=== PATIENT | female | born 1980 | race Caucasian/White ===

== ENCOUNTER 2017-06-11 19:22 | Emergency (ER) | payer OTHER ==
[~2017-06-11] VITALS: Ht 157.5 cm; Wt 112.9 kg
[~2017-06-11 19:22] MED LIST: CITRACAL PO; CLR10 PO; CLX20 PO; CMBIN INH; FLNCV PO; VALA500T60 PO
[2017-06-11 19:29] VITALS: TEMP 36.8; Ht 157.5 cm; Wt 112.9 kg
--- NOTE | 2017-06-11 19:42 | EMERGENCY ROOM VISIT NOTE ---
History First contact with patient: 19:33 Chief Complaint: ABDOMINAL PAIN Stated Complaint: SEVERE ABD PAIN History of Present Illness The patient is a 36 year old female with PMH of gastric bypass surgery 6 years ago and GERD, who presents to the Emergency Room with complaints of epigastric pain since yesterday afternoon. Pain is in the epigastric and left upper abdomen , intermittent, sharp and burning, 9/10. Associated nausea with dry heaves, no vomiting. She has taken Peptobismol with relief of her nausea and abdominal pain, but it keeps coming back, which she states is unusual for her. She does not have any pain in the rest of her abdomen. Patient reports that she normally gets pain like this when she is hungry and it is improved by eating, however she has eaten several times and has not improved her pain, and sometimes aches and felt worse. She denies any fevers or chills, headaches, neck pain, shortness of breath, chest pain, back pain, vomiting, diarrhea or constipation, bloody or black stools, dysuria or urinary frequency, abnormal vaginal discharge, or rash. Review of Systems A complete 10 point review of systems was reviewed with the patient with pertinent positives and negatives as per history of present illness. All else were negative. Past Medical/Surgical History Gastric bypass surgery, GERD, depression, anxiety Social History Smoking Status: Never Smoker Alcohol Use: none Drug Use: none Housing Status: lives with family Current/Historical Medications Scheduled Bupropion (Wellbutrin Sr), 200 MG PO BID Multivitamin (Multivitamin), 1 TAB PO DAILY Valacyclovir (Valtrex), 500 MG PO DAILY Scheduled PRN Ipratropium-Albuterol (Combivent Respimat), 2 PUFFS INH BID PRN for SOB/Wheezing Allergies Reviewed in chart Physical Exam Vital Signs Date Time Temp Pulse Resp B/P (MAP) Pulse Ox O2 Delivery O2 Flow Rate FiO2 06/12/17 00:39 101 18 144/85 99 Room Air 06/11/17 23:15 98 18 159/98 98 Room Air 06/11/17 21:25 92 19 161/122 97 Room Air 06/11/17 19:29 36.8 101 20 164/92 97 Room Air Physical Exam CONSTITUTIONAL: Pleasant and cooperative. No acute distress. Moderately dehydrated. Very poor dentition. HEENT: Normocephalic, atraumatic. Pupils equal, round and reactive to light, EOMI. TMs normal. Pharynx normal. Dry mucous membranes. NECK: Supple, full active range of motion without discomfort. RESPIRATORY: Clear to auscultation bilaterally with no wheezing, crackles, rhonchi or stridor. Equal expansion bilaterally. CARDIOVASCULAR: Regular rate and rhythm with no murmurs, rubs or gallops. Normal peripheral perfusion. No edema. GASTROINTESTINAL: Mild epigastric and left upper quadrant tenderness to palpation. No rebound tenderness or guarding. Abdomen is otherwise soft, nontender, nondistended. No palpable masses or HSM. Bowel sounds present in all quadrants. MUSCULOSKELETAL: Full range of motion of all joints without discomfort. INTEGUMENTARY: No rash or other significant dermatologic conditions noted. NEUROLOGIC: Alert and oriented X 4 with normal affect. Cranial nerves II-XII grossly intact. No focal neurologic deficits noted. Medical Decision & Procedures Laboratory Results 06/11/17 20:00 Red Blood Count 4.18, Mean Corpuscular Volume 74.2, Mean Corpuscular Hemoglobin 23.7, Mean Corpuscular Hemoglobin Concent 31.9, Mean Platelet Volume 9.2, Neutrophils (%) (Auto) 63.1, Lymphocytes (%) (Auto) 28.4, Monocytes (%) (Auto) 6.8, Eosinophils (%) (Auto) 1.5, Basophils (%) (Auto) 0.1, Neutrophils # (Auto) 5.85, Lymphocytes # (Auto) 2.64, Monocytes # (Auto) 0.63, Eosinophils # (Auto) 0.14, Basophils # (Auto) 0.01 06/11/17 20:00 Test 06/11/17 20:00 06/11/17 22:10 White Blood Count 9.28 K/uL (4.8-10.8) Red Blood Count 4.18 M/uL (4.2-5.4) Hemoglobin 9.9 g/dL (12.0-16.0) Hematocrit 31.0 % (37-47) Mean Corpuscular Volume 74.2 fL (80-100) Mean Corpuscular Hemoglobin 23.7 pg (25-34) Mean Corpuscular Hemoglobin Concent 31.9 g/dl (32-36) Platelet Count 396 K/uL (130-400) Mean Platelet Volume 9.2 fL (7.4-10.4) Neutrophils (%) (Auto) 63.1 % Lymphocytes (%) (Auto) 28.4 % Monocytes (%) (Auto) 6.8 % Eosinophils (%) (Auto) 1.5 % Basophils (%) (Auto) 0.1 % Neutrophils # (Auto) 5.85 K/uL (1.4-6.5) Lymphocytes # (Auto) 2.64 K/uL (1.2-3.4) Monocytes # (Auto) 0.63 K/uL (0.11-0.59) Eosinophils # (Auto) 0.14 K/uL (0-0.5) Basophils # (Auto) 0.01 K/uL (0-0.2) RDW Standard Deviation 43.3 fL (36.4-46.3) RDW Coefficient of Variation 15.9 % (11.5-14.5) Immature Granulocyte % (Auto) 0.1 % Immature Granulocyte # (Auto) 0.01 K/uL (0.00-0.02) Anion Gap 8.0 mmol/L (3-11) Est Creatinine Clear Calc Drug Dose 139.4 ml/min Estimated GFR () 130.5 Estimated GFR (Non- 112.6 BUN/Creatinine Ratio 16.6 (10-20) Lactic Acid Level 1.3 mmol/L (0.4-2.0) Calcium Level 8.5 mg/dl (8.5-10.1) Total Bilirubin 0.4 mg/dl (0.2-1) Direct Bilirubin < 0.1 mg/dl (0-0.2) Aspartate Amino Transf (AST/SGOT) 14 U/L (15-37) Alanine Aminotransferase (ALT/SGPT) 22 U/L (12-78) Alkaline Phosphatase 94 U/L (45-117) Total Protein 7.8 gm/dl (6.4-8.2) Albumin 3.3 gm/dl (3.4-5.0) Lipase 99 U/L (73-393) Urine Color YELLOW Urine Appearance CLEAR (CLEAR) Urine pH 5.0 (4.5-7.5) Urine Specific [place] 1.015 (1.000-1.030) Urine Protein NEG (NEG) Urine Glucose (UA) NEG (NEG) Urine Ketones NEG (NEG) Urine Occult Blood NEG (NEG) Urine Nitrite NEG (NEG) Urine Bilirubin NEG (NEG) Urine Urobilinogen NEG (NEG) Urine Leukocyte Esterase NEG (NEG) Urine Test NEG (NEG) Medications Administered Medications (Trade) Dose Ordered Sig/Maryanne Route Start Time Stop Time Status Last Admin Dose Admin Fentanyl Citrate (Fentanyl Inj) 50 mcg NOW STAT IV 06/11/17 21:11 06/11/17 21:12 DC 06/11/17 21:22 50 MCG Famotidine (Pepcid 20mg Iv Push) 20 mg NOW STAT IV 06/11/17 21:11 06/11/17 21:12 DC 06/11/17 21:23 20 MG Al Hydroxide/Mg Hydroxide (Maalox Susp) 30 ml STK-MED ONCE .ROUTE 06/11/17 21:19 06/11/17 21:20 DC 06/11/17 21:22 30 ML Lidocaine HCl (Viscous Lidocaine 2% Soln) 20 ml STK-MED ONCE .ROUTE 06/11/17 21:19 06/11/17 21:20 DC 06/11/17 21:22 20 ML Medical Decision CC: Patient presenting with complaint of epigastric pain and nausea Interpretation of Labs: No leukocytosis, mild anemia, no significant electrolyte abnormalities, normal renal function, liver enzymes and lipase. Negative lactic acid UA negative, urine negative. Differential Diagnosis: Includes, but not limited to leak of the anastomosis from gastric bypass surgery, small bowel obstruction, gastritis, peptic ulcer disease, GERD, gastroenteritis, pancreatitis, cholecystitis, cholelithiasis, dehydration, among others. Medication Reconciliation: I attest that I have personally reviewed the patient' s current medication list. Vital signs review: I reviewed the patient's vital signs and interpret them as follows: T: Afebrile; BP: Hypertensive; HR: Within normal limits; RR: Within normal limits; Pulse Ox: Within normal limits on room air. Blood pressure screening: The patient was found to have an elevated blood pressure and was referred to their primary doctor for recheck and further treatment. Summary: Patient was evaluated at bedside, history and physical exam performed. Patient alert and oriented, no acute distress, sitting calmly in the stretcher. She has mild tenderness in the epigastric and left upper quadrant of her abdomen , otherwise nontender, no guarding. Given her history of gastric bypass surgery, will do CT with oral contrast to rule out any leaks or obstruction. Orders were placed at bedside for labs, UA, IV fluids for hydration, IV fentanyl for pain, GI cocktail and IV Pepcid for suspected gastritis, and CT abdomen/pelvis. Patient discussed with Dr. Gaines, who agrees with my assessment and plan. Labs reviewed as above, unremarkable. CT abdomen/pelvis stat rad preliminary read shows no acute abnormality, no evidence of leak or perforation, normal appendix and no bowel obstruction or inflammation. Patient reassessed multiple times throughout ED stay, she reports that her symptoms are much improved after medications. She is asking for something to eat. She is tolerating PO well. 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 Patient was also given strict return precautions should her symptoms worsen, she verbalized understanding. Patient was discharged home in stable condition and inability. Head Trauma GCS Score: 15 Medication Reconcilliation Current Medication List: was personally reviewed by me Blood Pressure Screening Patient's blood pressure: Elevated blood pressure Blood pressure disposition: Referred to PCP Impression Primary Impression: Epigastric abdominal pain Departure Information Dispostion Home / Self-Care Condition GOOD Patient Instructions ED PUD Vs Gastritis, My [facility] Additional Instructions You have been treated in the Emergency Department your Abdominal Pain. Laboratory results and imaging studies have ruled out any emergent causes for your abdominal pain which would warrant admission or surgery. You may take Tums or Maalox as needed for your stomach pain. You should discuss with your primary care provider and instrumentation instructor about possibly restarting medicine for reflux disease. Drink plenty of fluids to stay well hydrated. As with any trip to the Emergency Department, you should follow-up with your Primary Care Provider in the next few days. Return to the emergency department if your symptoms persist or get worse, including severe worsening abdominal pain, worsening nausea/vomiting, fever/ chills, blood in your stool or urine, or any other concerns. Work Instructions Return To Work: 2 days
[2017-06-11 20:16] LABS: BASO % 0.1 %; BASO ABS # 0.01 K/uL (0-0.2); EOS % 1.5 %; EOS ABS # 0.14 K/uL (0-0.5); HEMOGLOBIN 9.9 g/dL (12.0-16.0); IG# 0.01 K/uL (0.00-0.02); LYMPH % 28.4 %; LYMPH ABS # 2.64 K/uL (1.2-3.4); MEAN CELL VOLUME 74.2 fL (80-100); MEAN CORPUSCULAR HEMOGLOBIN 23.7 pg (25-34); MEAN CORPUSCULAR HGB CONC 31.9 g/dl (32-36); MEAN PLATELET VOLUME 9.2 fL (7.4-10.4); MONO % 6.8 %; MONO ABS # 0.63 K/uL (0.11-0.59); NEUT % 63.1 %; NEUT ABS # 5.85 K/uL (1.4-6.5); PLATELET COUNT 396 K/uL (130-400); RED CELL DISTRIBUTION WIDTH CV 15.9 % (11.5-14.5); RED CELL DISTRIBUTION WIDTH SD 43.3 fL (36.4-46.3); WHITE BLOOD COUNT 9.28 K/uL (4.8-10.8)
[2017-06-11] MEDS ORDERED: IPRA1AER2 INH (20:33)
[2017-06-11] MEDS ORDERED: MULT-506 PO (20:34)
[2017-06-11 20:36] LABS: ALBUMIN 3.3 gm/dl (3.4-5.0); ALT/SGPT 22 U/L (12-78); BLOOD UREA NITROGEN 11 mg/dl (7-18); CALCIUM 8.5 mg/dl (8.5-10.1); CARBON DIOXIDE 25 mmol/L (21-32); CREATININE 0.65 mg/dl (0.60-1.20); GLUCOSE 93 mg/dl (70-99); LIPASE 99 U/L (73-393); POTASSIUM 3.7 mmol/L (3.5-5.1); SODIUM 138 mmol/L (136-145)
[2017-06-11] MEDS ORDERED: BUPR200T2 PO (20:36)
[2017-06-11 20:39] LABS: ALKALINE PHOSPHATASE 94 U/L (45-117); AST/SGOT 14 U/L (15-37); TOTAL PROTEIN 7.8 gm/dl (6.4-8.2)
[2017-06-11] MEDS ORDERED: FAMOTIDINE 20MG/5ML IV PUSH IV STA (21:11)
[2017-06-11] MEDS ORDERED: GI COCKTAIL PO STA (21:11)
[2017-06-11] MEDS ORDERED: FENTANYL CITRATE INJ 50 MCG/1 ML 2 ML VIAL IV STA (21:11)
[2017-06-11] MEDS ORDERED: ALUMINUM/MAGNESIUM SUSP 30 ML UDC ONE (21:19)
[2017-06-11] MEDS ORDERED: LIDOCAINE HCL 2% VISC SOLN 20 ML UDC ONE (21:19)
[2017-06-12 00:39] VITALS: BP 144/85; PULSE 101; O2SAT 99
--- NOTE | 2017-06-12 06:33 | DIAGNOSTIC IMAGING REPORT ---
ABD/PELVIS ORAL CONT ONLY CLINICAL HISTORY: Severe gastric pain. Previous gastric bypass. COMPARISON STUDY: No previous studies for comparison. TECHNIQUE: Axial images of the abdomen and pelvis were obtained without IV contrast. Oral contrast was administered. FINDINGS: Lung bases are clear. The patient is status post Terra-en-Y gastric bypass. There is no free air, pneumatosis or portal venous gas. There is no evidence for a bowel obstruction. Evaluation of the abdomen and pelvis is suboptimal on this unenhanced exam. There is no biliary ductal dilatation status post cholecystectomy. The liver, spleen, adrenal glands, kidneys and pancreas are normal with the exception of a few equivocal punctate left renal calculi. There are no ureteral calculi and no hydronephrosis. There is no peripancreatic infiltration or pancreatic ductal dilatation. No abdominal or pelvic lymphadenopathy is present. The appendix is normal. No suspicious osseous lesions are present. IMPRESSION: 1. No acute process within the abdomen or pelvis on unenhanced exam. 2. Status post gastric bypass. No evidence for a bowel obstruction. No free air. 3. Normal appendix. 4. Possible punctate left renal calculi. No ureteral calculi or hydronephrosis. Electronically signed by: Eliecer Montoya M.D. 06/12/2017 6:32 AM Dictated Date/Time: 06/12/2017 6:24 AM
== END 2017-06-12 00:46 | disposition home or self-care (01) ==
LOC: C.EDB 19:24
DX: R10.13 Epigastric pain (principal); K21.9 Gastro-esophageal reflux disease without esophagitis; F32.9 Major depressive disorder, single episode, unspecified; F41.9 Anxiety disorder, unspecified

== ENCOUNTER → 2017-09-18 | Outpatient (CLI) | payer OTHER ==
[~2017-09-18] MED LIST changes: +BUPR200T2 PO; -CITRACAL PO; -CLR10 PO; -CLX20 PO; -CMBIN INH; -FLNCV PO; +IPRA1AER2 INH; +MULT-506 PO
== END | disposition home or self-care (01) ==
LOC: C.LABPBG 15:12
PROVIDERS: ATTEND Physician Assistant
DX: N92.6 Irregular menstruation, unspecified (principal)

== ENCOUNTER → 2017-10-28 | Outpatient (CLI) | payer OTHER | END | disposition home or self-care (01) | LOC: C.PAPS 10:57 | PROVIDERS: ATTEND Obstetrics & Gynecology | DX: Z12.4 Encounter for screening for malignant neoplasm of cervix (principal) ==

== ENCOUNTER → 2017-10-28 | Outpatient (CLI) | payer OTHER ==
[2017-10-28 16:41] LABS: HEMATOCRIT 25.9 % (37-47); HEMOGLOBIN 7.8 g/dL (12.0-16.0); MEAN CELL VOLUME 63.6 fL (80-100); MEAN CORPUSCULAR HEMOGLOBIN 19.2 pg (25-34); MEAN CORPUSCULAR HGB CONC 30.1 g/dl (32-36); MEAN PLATELET VOLUME 9.8 fL (7.4-10.4); PLATELET COUNT 515 K/uL (130-400); RED CELL DISTRIBUTION WIDTH CV 17.4 % (11.5-14.5); RED CELL DISTRIBUTION WIDTH SD 40.1 fL (36.4-46.3); WHITE BLOOD COUNT 10.68 K/uL (4.8-10.8)
[2017-10-28 16:49] LABS: BASO % 0.1 %; BASO ABS # 0.01 K/uL (0-0.2); EOS % 0.8 %; EOS ABS # 0.09 K/uL (0-0.5); IG# 0.05 K/uL (0.00-0.02); LYMPH % 18.6 %; LYMPH ABS # 1.99 K/uL (1.2-3.4); MONO ABS # 0.64 K/uL (0.11-0.59)
== END | disposition home or self-care (01) ==
LOC: C.LAB1850 15:23
PROVIDERS: ATTEND Obstetrics & Gynecology
DX: O09.521 Supervision of elderly multigravida, first trimester (principal); Z3A.00 Weeks of gestation of pregnancy not specified

== ENCOUNTER → 2017-11-05 | Outpatient (CLI) | payer OTHER | END | disposition home or self-care (01) | LOC: C.LABPBG 11:23 | PROVIDERS: ATTEND Obstetrics & Gynecology | DX: O99.019 Anemia complicating pregnancy, unspecified trimester (principal) ==